=== PATIENT | male | born 2000 | race Two or more races ===

== ENCOUNTER 2024-05-07 13:27 | Emergency (ER) | payer OTHER ==
[~2024-05-07] VITALS: Ht 175.3 cm; Wt 104.3 kg
[2024-05-07] MEDS ORDERED: CEFTRIAXONE SODIUM 1,000 MG VIAL IM STA (15:17)
[2024-05-07] MEDS ORDERED: LIDOCAINE HCL 1% 10ML VIAL ONE (15:34)
[2024-05-07] MEDS ORDERED: CEFTRIAXONE SODIUM 1,000 MG VIAL ONE (15:34)
[2024-05-07 16:03] LABS: HEMATOCRIT 40.5 % (39.0-48.0); HEMOGLOBIN 14.2 g/dL (13-16.00); MEAN CELL VOLUME 93.4 fL (80.0-100.00); MEAN CORPUSCULAR HEMOGLOBIN 32.8 pg (27.00-32.0); MEAN CORPUSCULAR HGB CONC 35.1 g/dl (32.0-36.0); PLATELET COUNT 254 K/uL (150-450); RED BLOOD COUNT 4.33 M/uL (4.00-6.00); RED CELL DISTRIBUTION WIDTH 13.3 % (11.5-14.5)
[2024-05-07] MEDS ORDERED: AMOX1TAB5 PO (16:37)
== END 2024-05-07 17:29 | disposition home or self-care (01) ==
LOC: ER 13:28
DX: J02.9 Acute pharyngitis, unspecified (principal); Z20.822 Contact with and (suspected) exposure to COVID-19
CPT/HCPCS: 36415; 96372; 99282; J0696